=== PATIENT | male | born 1980 | race Two or more races ===

== ENCOUNTER 2020-10-05 14:36 | Emergency (ER) | payer SELFPAY ==
[~2020-10-05] VITALS: Ht 165.1 cm; Wt 64.6 kg
[2020-10-05 14:39] VITALS: BP 148/89
--- NOTE | 2020-10-05 14:55 | NUR ---
INTERNAL MEDICINE DOCTOR: PT TO ROOM FROM [facility]
--- NOTE | 2020-10-05 14:58 | NUR ---
CC OF BOTTOM RIGHT TOOTH PAIN FOR 1 WEEK, HAS APPOITMENT ON WEDNESDAY WITH DENTIST BUT PAIN HAS WORSENED.
== END 2020-10-05 15:13 | disposition home or self-care (01) ==
LOC: ED 15:07
DX: K02.9 Dental caries, unspecified (principal); K01.1 Impacted teeth
CPT/HCPCS: 99283